=== PATIENT | female | born 1970 | race Two or more races ===

== ENCOUNTER 2024-02-02 09:07 | Day surgery (SDC) | payer OTHER ==
[2024-01-29 09:49] LABS: HEMATOCRIT 41.7 % (36.0-45.00); HEMOGLOBIN 14.2 g/dL (12.0-15.00); MEAN CELL VOLUME 102.1 fL (80.00-100.00); MEAN CORPUSCULAR HEMOGLOBIN 34.8 pg (27.00-32.0); MEAN CORPUSCULAR HGB CONC 34.1 g/dl (32.0-36.0); PLATELET COUNT 269 K/uL (150-450); RED BLOOD COUNT 4.09 M/uL (4.00-6.00); RED CELL DISTRIBUTION WIDTH 14.4 % (11.5-14.5)
[2024-01-29 10:11] LABS: URINE APPEARANCE Clear; URINE BILIRRUBIN Negative (NEGATIVE); URINE BLOOD Negative; URINE COLOR Yellow; URINE GLUCOSE Negative (NEGATIVE); URINE KETONE Negative (NEGATIVE); URINE LEUKOCYTE Negative; URINE NITRATE Negative; URINE PROTEIN Negative (NEGATIVE); URINE UROBILINOGEN 0.2 E.U./dl
[2024-01-29 10:14] LABS: URINE BACTERIA 1002.7 uL (0.0-1933); URINE EPITHELIAL CELLS 30.8 uL (0.0-38.8); URINE RBC 6.4 uL (0.0-20.8); URINE WBC 4.6 uL (0.0-23.2)
[2024-01-29 10:45] LABS: INR 0.95; PARTIAL THROMBOPLASTIN TIME 28.6 SECONDS (22.0-34.0); PROTHROMBIN TIME 10.4 SECONDS (9.0-11.5)
[2024-01-29 10:47] VITALS: BP 125/82
[2024-01-29 11:04] LABS: ALBUMIN 3.7 gm/dL (3.4-5.0); CREATININE SERUM 0.45 mg/dL (0.55-1.02); GFR 146.89; POTASSIUM 4.19 mEq/L (3.5-5.1)
[~2024-02-02] VITALS: Ht 165.1 cm; Wt 97.5 kg
[2024-02-02] MEDS ORDERED: CIPROFLOXACIN2.5 ML OTIC (15:50)
[2024-02-02] MEDS ORDERED: CEPHALEXIN500 MG PO (15:50)
[2024-02-02] MEDS ORDERED: MORPHINE SULFATE 2 MG/ML CARTRIDGE IV ONE ×2 (16:40→17:25)
== END 2024-02-02 18:15 | disposition home or self-care (01) ==
LOC: CIR.AMB 09:07
PROVIDERS: ATTEND Otolaryngology Otology & Neurotology
DX: H80.91 Unspecified otosclerosis, right ear (principal); H90.11 Conductive hearing loss, unilateral, right ear, with unrestricted hearing on the contralateral side